=== PATIENT | female | born 1955 | race Caucasian/White ===

== ENCOUNTER 2017-03-11 06:58 | Day surgery (SDC) | payer BC ==
[~2017-03-11] VITALS: Ht 154.9 cm; Wt 81.6 kg
[~2017-03-11 06:58] MED LIST: ESTR1TAB17 PO; LISI40TA4 PO
[2017-03-11] MEDS ORDERED: SIMETHICONE 40 MG/0.6 ML ML ONE (07:11)
[2017-03-11] MEDS: MEPERIDINE HCL/PF 100 MG/ML AMP ONE ×3 (08:14→08:18)
[2017-03-11] MEDS: MIDAZOLAM HCL 5 MG/5 ML VIAL ONE ×4 (08:14→08:20)
[2017-03-11 11:59] VITALS: BP 128/87; PULSE 82; RESP 16
== END 2017-03-11 10:05 | disposition home or self-care (01) ==
LOC: SDS 06:58 → SMU 06:59 → SDS 10:05
PROVIDERS: ATTEND Internal Medicine Gastroenterology
DX: Z86.010 Personal history of colon polyps (principal); E11.9 Type 2 diabetes mellitus without complications; I10 Essential (primary) hypertension; E66.9 Obesity, unspecified; Z90.710 Acquired absence of both cervix and uterus; K57.30 Diverticulosis of large intestine without perforation or abscess without bleeding; K64.8 Other hemorrhoids; Z68.35 Body mass index [BMI] 35.0-35.9, adult; R79.89 Other specified abnormal findings of blood chemistry
CPT/HCPCS: 45378; J2175; J2250; J7030